=== PATIENT | male | born 1985 | race Caucasian/White ===

== ENCOUNTER 2019-05-22 13:45 | Emergency (ER) | payer MEDICAID ==
[~2019-05-22] VITALS: Ht 177.8 cm; Wt 93.0 kg
[2019-05-22] MEDS ORDERED: AMLODIPINE BESY10 MG ORAL (14:00)
--- NOTE | 2019-05-22 14:03 | NUR ---
ED Nurse Note: [facility] AOX4. PT STATES HE HAS HX OF RIGHT FEMUR FX X 08/2017. PT STATES FEMUR WAS FIXED WITH SURGERY. PT STATES HE WAS SEEN AT [facility] 2 MONTHS AGO AND WAS TOLD HE REFRACTURED RIGHT FEMUR. PT WAS UNABLE TO FOLLOW UP WITH ORTHOPEDICS DUE TO INCARCERATION. PT STATES HE WAS JUST RELEASED. PT C/O CONSTANT 6/10 PAIN TO RIGHT THIGH SINCE INITIAL FRACTURE THAT IS EXACERBATED BY ACTIVITY. FULL ROM OF EXTREMITY, CAP REFILL <2 SECONDS, SENSATION AND CIRCULATION INTACT, MUSCLE STRENGTH 5/5. OF NOTE, PT IS IN REHAB AND IS UNABLE TO TAKE NARCOTICS.
[2019-05-22 14:07] VITALS: BP 142/88
--- NOTE | 2019-05-22 14:29 | Emergency Room Report ---
History of Present Illness General Chief Complaint: Pain Source: Patient Present Illness HPI HPI: This is a 33-year-old male with a history of right femur fracture status post internal fixation 2016 (Dr. Chowdhury), polysubstance abuse currently on a voluntary drug rehab program presented for evaluation of right thigh pain. The pain began approximately 2 months ago where the patient was on vacation but does not recall a specific injury. He states that he was nearly immobile for several days however the pain gradually improved. States he was evaluated in the emergency department 2 months ago when the pain began initially diagnosed with a periprosthetic fracture. He was unable to follow-up with his orthopedic surgeon as he was incarcerated and then voluntarily checked himself into a drug rehab program which she is currently still enrolled in. Today, he states that he has had 3 days of worsening right thigh pain that does not radiate but is now preventing him from walking. He cannot recall a new injury. He has been using ibuprofen intermittently and is declining any narcotic pain medication. He denies any numbness or tingling, loss of strength, pain in the hip or back. Denies any difficulty passing urine, fecal incontinence or saddle anesthesias. PMH: Polysubstance abuse currently in rehab, hypertension PSH: Internal fixation of right femur Social Hx: Former polysubstance abuse including methamphetamines, former tobacco use, former alcohol use currently in remission Allergies: Coded Allergies: No Known Allergies (Unverified , 05/22/19) Nursing Documentation-PMH Past Medical History: No History, Except For Hx Hypertension: Yes Physical Exam Vital Signs Date Time Temp Pulse Resp B/P (MAP) Pulse Ox O2 Delivery O2 Flow Rate FiO2 05/22/19 13:55 98.2 88 18 147/95 (112) 97 Room Air General: Awake and alert, no acute distress Resp: Normal work of breathing. Skin: Intact. No abrasions, laceration or rash. Prior surgical scars are clean dry and intact MSK: Normal tone and bulk. No obvious deformity. There is tenderness to palpation in the distal femur bilaterally without obvious deformity in the knee or hip. There is some tenderness with weightbearing over the lateral and medial distal femur. Patient is able to ambulate several feet. Neuro: Awake and alert. Mentating appropriately. Moving all extremities. Sensation is intact to light touch over the dermatomes of the right lower extremity. Spine: No midline or paraspinal tenderness. No deformity in the cervical, thoracic or lumbosacral spine. 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 He states he was diagnosed with a periprosthetic fracture at the emergency department in [place] but never sought medical attention as he was incarcerated and then committed himself voluntary to drug rehab program. He is complaining today 3 days worsening pain and no difficulty ambulating. Will obtain x-rays and treat with NSAIDs. He has declined any pain medication other than nonsteroidals at this time. Other X-Ray Diagnostic Results Other X-Ray Diagnostic Results : X-Ray ordered: R femur # of Views/Limited Vs Complete: 2 View Indication: Pain EP Interpretation: Yes Interpretation: other Reevaluation Time: 15:42 Last Vital Signs Date Time Temp Pulse Resp B/P (MAP) Pulse Ox O2 Delivery O2 Flow Rate FiO2 05/22/19 14:07 98.4 84 17 142/88 99 Room Air Status: unchanged Reevaluation Impression X-ray shows the fracture from 2 years ago with nonunion of the distal femur as well as questionable hardware failure. The patient require orthopedic follow- up and stated that would like to see his former orthopedic surgeon if possible which he will try to arrange himself. We will also provide him additional orthopedic surgery referrals in the area. He has declined pain medication aside from NSAIDs which we will provide to him to take back to his substance abuse rehab program. We discussed reasons to return to the emergency department and I answered all the patient's questions. He is safe and appropriate for discharge with orthopedic surgery outpatient follow-up. Disposition: HOME, SELF-CARE Condition: Stable Scripts Acetaminophen (Acetaminophen) 500 Mg Tablet 500 MG ORAL Q4H for PAIN, #20 TAB Prov: Mata Bowden MD 05/22/19 Ibuprofen (Ibuprofen) 600 Mg Tablet 600 MG PO Q6HR for 10 Days, #40 TAB Prov: Mata Bowden MD 05/22/19 Mata Bowden MD May 22, 2019 14:29
--- NOTE | 2019-05-22 14:39 | NUR ---
ED Nurse Note: RADIOLOGY CALLED FOR XRAY.
--- NOTE | 2019-05-22 15:35 | Diagnostic Imaging Report ---
Indication: Thigh pain Findings: 2 views of the right femur were obtained. There is an old fracture involving the shaft of the distal femur which has been reduced by intramedullary bonita and proximal and distal interlocking screws. The fracture shows exuberant periosteal reaction and new bone formation particularly along the medial side of the fracture. There is a notable lucency demonstrated suggestive of nonosseous union. In addition there is evidence of hardware malfunction with a fracture of the one of the distal interlocking screws. IMPRESSION: Surgically reduced fracture of the distal right femur. The radiographic appearance suspicious for nonunion. Hardware injury noted as described above.
[2019-05-22] MEDS ORDERED: IBUPROFEN600 M1 PO (15:46)
[2019-05-22] MEDS ORDERED: ACETAMINOPHEN500 M5 ORAL (15:46)
[2019-05-22 15:58] VITALS: BP 136/82
--- NOTE | 2019-05-22 15:58 | NUR ---
ED Nurse Note: PT LAYING PEACEFULLY IN BED IN NAD. AOX4. PRESCRIPTIONS AND DISCHARGE PAPERWORK EXPLAINED TO PT. PT VERBALIZES UNDERSTANDING AND ALL QUESTIONS ANSWERED. PRESCRIPTIONS AND DISCHARGE PAPERWORK GIVEN TO PT AND ID WRISTBAND REMOVED. PT WALKED OUT OF ER WITH STEADY GAIT AND ALL BELONGINGS.
== END 2019-05-22 16:00 | disposition home or self-care (01) ==
LOC: EMR 14:20
DX: S72.401K Unspecified fracture of lower end of right femur, subsequent encounter for closed fracture with nonunion (principal); T85.698A Other mechanical complication of other specified internal prosthetic devices, implants and grafts, initial encounter; I10 Essential (primary) hypertension; Z87.891 Personal history of nicotine dependence; F10.21 Alcohol dependence, in remission; X58.XXXD Exposure to other specified factors, subsequent encounter; X58.XXXA Exposure to other specified factors, initial encounter; Y92.9 Unspecified place or not applicable
CPT/HCPCS: 99283

== ENCOUNTER 2019-06-18 13:53 | Emergency (ER) | payer MEDICAID, OTHER ==
[~2019-06-18] VITALS: Ht 177.8 cm; Wt 94.8 kg
[~2019-06-18 13:53] MED LIST: ACETAMINOPHEN500 M5 ORAL; AMLODIPINE BESY10 MG ORAL; IBUPROFEN600 M1 PO
[2019-06-18 14:15] VITALS: BP 134/93
--- NOTE | 2019-06-18 14:15 | NUR ---
ED Nurse Note: Patient walked in to ER due to right leg pain. AAO x4, VSS at this time, skin is dry warm to touch.
--- NOTE | 2019-06-18 14:21 | Emergency Room Report ---
History of Present Illness General Chief Complaint: Pain Source: Patient Present Illness HPI 33-year-old male with history of right femur fracture and currently having the hardware placed in here complaining of worsening pain. Patient was here 2 weeks ago x-ray was done and as well as CT scan showed that the hardware is malfunctioning. Patient has a pending appointment with personnel security specialist however reports more pain. Patient was discharged 2 weeks ago with ibuprofen and Tylenol. Patient reports that he is a recovering narcotic addict and specifically requests for no narcotics to be given. Patient denies any new injury or fall. Understands that no new imaging is needed at this time. As we have recently done CT scan and x-ray on his right femur. Denies tingling numbness. Denies pain radiation. Rating pain 10 out of 10. Also requests refill for lidocaine patch. Denies chest pain, shortness of breath, palpitation , no other associated symptoms. Allergies: Coded Allergies: No Known Allergies (Unverified , 06/18/19) Patient History Past Medical History: see triage record Past Surgical History: unable to obtain Pertinent Family History: none Immunizations: UTD Reviewed Nursing Documentation: PMH: Agreed; PSxH: Agreed Nursing Documentation-PMH Past Medical History: No History, Except For Hx Hypertension: Yes - SUBSTANCE ABUSE Review of Systems All Other Systems: negative except mentioned in HPI Physical Exam Vital Signs Date Time Temp Pulse Resp B/P (MAP) Pulse Ox O2 Delivery O2 Flow Rate FiO2 06/18/19 14:01 98.4 79 18 134/93 (107) 97 Room Air Sp02 EP Interpretation: reviewed, normal General Appearance: no apparent distress, alert, GCS 15, non-toxic Head: normocephalic, atraumatic Eyes: bilateral eye normal inspection, bilateral eye PERRL ENT: hearing grossly normal, normal pharynx, no angioedema, normal voice Neck: full range of motion, no meningismus, supple/symm/no masses Respiratory: chest non-tender, lungs clear, normal breath sounds, no wheezing, speaking full sentences Cardiovascular #1: regular rate, rhythm, no edema, normal capillary refill Cardiovascular #2: 2+ dorsalis pedis (R), 2+ dorsalis pedis (L) Gastrointestinal: normal bowel sounds, non tender, soft, non-distended, no guarding, no rebound Genitourinary: no CVA tenderness Musculoskeletal: normal inspection, back normal, digits/nails normal, gait/ station normal, no calf tenderness, pelvis stable Neurologic: normal inspection, alert, oriented x3 Psychiatric: judgement/insight normal, memory normal, mood/affect normal, no suicidal/homicidal ideation Skin: no rash Lymphatic: normal inspection Medical Decision Making PA Attestation All my diagnosis and treatment plans were reviewed ad discussed with my supervising physician Dr. Mcneal Diagnostic Impression: Primary Impression: Failed hardware Additional Impression: Pain in right femur ER Course 33-year-old male with history of right femur fracture and currently having the hardware placed in here complaining of worsening pain. Patient was here 2 weeks ago x-ray was done and as well as CT scan showed that the hardware is malfunctioning. Patient has a pending appointment with personnel security specialist however reports more pain. Patient was discharged 2 weeks ago with ibuprofen and Tylenol. Patient reports that he is a recovering narcotic addict and specifically requests for no narcotics to be given. Patient denies any new injury or fall. Understands that no new imaging is needed at this time. As we have recently done CT scan and x-ray on his right femur. Denies tingling numbness. Denies pain radiation. Rating pain 10 out of 10. Also requests refill for lidocaine patch. Denies chest pain, shortness of breath, palpitation , no other associated symptoms. Ddx considered but are not limited to: Hardware malfunction pain in the right femur, cellulitis right leg, osteomyelitis Vital signs: are WNL, pt. is afebrile H&PE are most consistent with: Hardware malfunction ORDERS: Lidocaine patch, Robaxin, Flexeril, ibuprofen ED INTERVENTIONS: None required at this time. DISCHARGE: At this time pt. is stable for d/c to home. Will provide printed patient care instructions, and any necessary prescriptions. Care plan and follow up instructions have been discussed with the patient prior to discharge. Patient agrees with the above course of treatment and to take Flexeril only at nighttime patient follow with personnel security specialist understanding no further imaging is needed at this time as patient as patient recently had imaging done in the right femur Last Vital Signs Date Time Temp Pulse Resp B/P (MAP) Pulse Ox O2 Delivery O2 Flow Rate FiO2 06/18/19 14:01 98.4 79 18 134/93 (107) 97 Room Air Disposition: HOME, SELF-CARE Condition: Stable Scripts Lidocaine Patch* (Lidoderm Patch*) 1 Each Adh..patch 1 PATCH TOPIC DAILY, #30 PATCH Patch(es) may remain in place for up to 12 hours in any 24-hour period. Prov: Tim Hercules 06/18/19 Cyclobenzaprine Hcl* (FLEXERIL*) 10 Mg Tablet 10 MG ORAL BEDTIME, #10 TAB Prov: Tim Hercules 06/18/19 Methocarbamol* (ROBAXIN-750*) 750 Mg Tablet 750 MG PO TID, #21 TAB 0 Refills Prov: Tim Hercules 06/18/19 Ibuprofen (Ibu) 800 Mg Tablet 800 MG PO BID, #30 TAB Prov: Tim Hercules 06/18/19 Patient Instructions: Hardware Removal Additional Instructions: Follow-up with personnel security specialist for checking her heart rate and possible removal or replacement take medication as directed avoid strenuous physical activity Tim Hercules Jun 18, 2019 14:21
[2019-06-18] MEDS ORDERED: CYCLOBENZAPRINE10 MG ORAL (14:22)
[2019-06-18] MEDS ORDERED: LIDODERM700 M1 TOPIC (14:22)
[2019-06-18] MEDS ORDERED: ROBAXIN-750750 MG PO (14:22)
[2019-06-18] MEDS ORDERED: IBU800 MG PO (14:22)
[2019-06-18 14:45] VITALS: BP 134/93
--- NOTE | 2019-06-18 14:45 | NUR ---
ED Nurse Note: Pt cleared by health care Provider for discharge. DC instructions/prescription was given and explained to pt and verbalized understanding of teachings. All medical deviecs such as ID band removed. Pt is AAO x4, ambulatory and left with all personal belongings.
== END 2019-06-18 15:30 | disposition home or self-care (01) ==
LOC: EMR 15:04
DX: M79.604 Pain in right leg (principal); I10 Essential (primary) hypertension; T84.098A Other mechanical complication of other internal joint prosthesis, initial encounter; Y83.8 Other surgical procedures as the cause of abnormal reaction of the patient, or of later complication, without mention of misadventure at the time of the procedure; Y92.9 Unspecified place or not applicable; F19.10 Other psychoactive substance abuse, uncomplicated
CPT/HCPCS: 99282

== ENCOUNTER 2019-09-05 17:27 | Emergency (ER) | payer MEDICAID, OTHER ==
[~2019-09-05] VITALS: Ht 172.7 cm; Wt 86.6 kg
[~2019-09-05 17:27] MED LIST changes: +CYCLOBENZAPRINE10 MG ORAL; +IBU800 MG PO; +LIDODERM700 M1 TOPIC; +ROBAXIN-750750 MG PO
[2019-09-05 17:40] VITALS: BP 151/95
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
[2019-09-05] MEDS ORDERED: HYDROcodone/Acetamin 5/325 tab ORAL ONE (18:45)
--- NOTE | 2019-09-05 18:46 | NUR ---
ED Nurse Note: [place] medication d/c by ERPA. Medication returned to pyxis.
--- NOTE | 2019-09-05 18:48 | NUR ---
ED Nurse Note: Xray at bedside.
[2019-09-05] MEDS ORDERED: Acetaminophen 500mg (ES) tab ORAL ONE (19:00)
--- NOTE | 2019-09-05 19:11 | NUR ---
HAND-OFF: Report given to Nellie RODRÍGUEZ. Endorsed plan of care. No new order at this time.
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
[2019-09-05] MEDS ORDERED: TYLENOL EXTRA500 MG ORAL (19:23)
[2019-09-05] MEDS ORDERED: IBUPROFEN600 MG ORAL (19:23)
[2019-09-05 19:42] VITALS: BP 150/97
--- NOTE | 2019-09-05 19:42 | NUR ---
ER DISCHARGE NOTE: Patient is cleared to be discharged per ERMD, pt is aox4, on room air, with stable vital signs. pt was given dc and prescription instructions, pt was able to verbalize understanding, pt id band removed without complications. pt is able to ambulate with steady gait. pt took all belongings.
--- NOTE | 2019-09-06 12:46 | Diagnostic Imaging Report ---
Indication: Right elbow pain Findings: 3 views of the right elbow were obtained. There is evidence of an acute fracture of the radial head intra-articular with slight displacement or depression of the lateral part of the radial head. Joint effusion noted. IMPRESSION: Acute fracture of the radial head
== END 2019-09-05 19:42 | disposition home or self-care (01) ==
LOC: EMR 19:36
DX: S52.124A Nondisplaced fracture of head of right radius, initial encounter for closed fracture (principal); W19.XXXA Unspecified fall, initial encounter; Y92.9 Unspecified place or not applicable; I10 Essential (primary) hypertension
CPT/HCPCS: 29125; 73080; Z7502; 99283

== ENCOUNTER → 2019-11-24 | Emergency (ER) | payer MEDICAID, OTHER ==
[~2019-11-24] VITALS: Ht 175.3 cm; Wt 88.5 kg
[~2019-11-24] MED LIST changes: +AUGMENTIN 875-1 EAC1 ORAL; +HYDROcodone/Acetamin 5/325 tab ORAL ONE; +IBUPROFEN600 MG ORAL; +Ketorolac 30mg Inj IM ONE; +NAPROXEN500 M2 ORAL; +ONDANSETRON ODT4 MG BC; +TYLENOL EXTRA500 MG ORAL
--- NOTE | 2019-11-24 16:40 | NUR ---
ED Nurse Note: patient walked in c/o right femur pain post surgery on 11/20/[address] [facility]. pt states pain 08/02. 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 pt denies fever. nad. patito pruitt at bedside. will continue to monitor patient.
--- NOTE | 2019-11-24 17:04 | Emergency Room Report ---
History of Present Illness General Chief Complaint: Pain Source: Patient Present Illness HPI 34-year-old male with no significant past medical history here. Day 3 of right femur bonita replacement. Complaining of pain right leg however denies fever chills complains of minimal swelling. Reports that he was discharged from the hospital 1 day ago and has a prescription for Jakin No. 45 as well as naproxen and Flexeril. Patient went to pharmacy and was told that they need to contact the physician who wrote them. The physician cannot be reached over the weekend. Patient here requesting pain medication. Has not taken any medication since has been discharged. Already ambulating with crutches. Denies tingling numbness in the leg. Incision site appears to be healing. Denies chest pain, shortness of breath, palpitation, headache or dizziness. Allergies: Coded Allergies: No Known Allergies (Unverified , 06/18/19) Patient History Past Medical History: see triage record Past Surgical History: unable to obtain Pertinent Family History: none Immunizations: UTD Reviewed Nursing Documentation: PMH: Agreed; PSxH: Agreed Nursing Documentation-PMH Past Medical History: No Stated History Hx Cardiac Problems: No Hx Hypertension: Yes - SUBSTANCE ABUSE Hx Pacemaker: No Hx Asthma: No Hx COPD: No Hx Diabetes: No Hx Cancer: No Hx Gastrointestinal Problems: No Hx Dialysis: No Hx Neurological Problems: No Hx Cerebrovascular Accident: No Hx Seizures: No Review of Systems All Other Systems: negative except mentioned in HPI Physical Exam Vital Signs Date Time Temp Pulse Resp B/P (MAP) Pulse Ox O2 Delivery O2 Flow Rate FiO2 11/24/19 16:35 98.1 102 18 166/98 (120) 98 Room Air Sp02 EP Interpretation: reviewed, normal General Appearance: no apparent distress, alert, GCS 15, non-toxic Head: normocephalic, atraumatic Eyes: bilateral eye normal inspection, bilateral eye PERRL ENT: hearing grossly normal, normal pharynx, no angioedema, normal voice Neck: full range of motion, supple/symm/no masses Respiratory: lungs clear, no rhonchi, no wheezing Cardiovascular #1: regular rate, rhythm, no edema Cardiovascular #2: 2+ femoral (R), 2+ femoral (L), 2+ dorsalis pedis (R), 2+ dorsalis pedis (L) Gastrointestinal: normal bowel sounds, non tender, soft, non-distended, no guarding, no rebound Rectal: deferred Genitourinary: no CVA tenderness Musculoskeletal: back normal, swelling - Minimal swelling right femur. Not warm to touch, no pus drainage noted Neurologic: alert, motor strength/tone normal, oriented x3, sensory intact, responsive, speech normal Psychiatric: judgement/insight normal, memory normal, mood/affect normal, no suicidal/homicidal ideation Skin: no rash Lymphatic: no adenopathy Medical Decision Making PA Attestation All my diagnosis and treatment plans were reviewed ad discussed with my supervising physician Dr. Marvin Diagnostic Impression: Primary Impression: Leg pain ER Course 34-year-old male with no significant past medical history here. Day 3 of right femur bonita replacement. Complaining of pain right leg however denies fever chills complains of minimal swelling. Reports that he was discharged from the hospital 1 day ago and has a prescription for Jakin No. 45 as well as naproxen and Flexeril. Patient went to pharmacy and was told that they need to contact the physician who wrote them. The physician cannot be reached over the weekend. Patient here requesting pain medication. Has not taken any medication since has been discharged. Already ambulating with crutches. Denies tingling numbness in the leg. Incision site appears to be healing. Denies chest pain, shortness of breath, palpitation, headache or dizziness. Ddx considered but are not limited to : Cellulitis, DVT, superficial infection, abscess, postoperative leg pain Vital signs: are WNL, pt. is afebrile H&PE are most consistent with: Postoperative leg pain ORDERS: Naproxen ED INTERVENTIONS: Jakin 5 mg p.o., Toradol 15 mg IM DISCHARGE: At this time pt. is stable for d/c to home. Will provide printed patient care instructions, and any necessary prescriptions. Care plan and follow up instructions have been discussed with the patient prior to discharge. Patient agrees with above treatment, understands that we cannot write for narcotics at this time as patient is postoperative and needs to follow-up with primary doctor. Patient will follow-up with primary care physician this coming Tuesday. Advised to return to the emergency room if fever chills, increased swelling and pain. Last Vital Signs Date Time Temp Pulse Resp B/P (MAP) Pulse Ox O2 Delivery O2 Flow Rate FiO2 11/24/19 16:35 98.1 102 18 166/98 (120) 98 Room Air Disposition: HOME, SELF-CARE Condition: Stable Scripts Naproxen* (NAPROXEN*) 500 Mg Tablet 500 MG ORAL TWICE A DAY, #30 TAB Prov: Tim Hercules 11/24/19 Patient Instructions: Edema, [id number] Additional Instructions: Follow-up with your primary care provider for further pain management as well as referral to specialist. Take medication as directed, worsening symptoms return to the emergency room Tim Hercules Nov 24, 2019 17:04
[2019-11-24 17:10] VITALS: BP 133/89
--- NOTE | 2019-11-24 17:10 | NUR ---
ER DISCHARGE NOTE: Patient is cleared to be discharged per ERPA, pt is aox4, on room air, with stable vital signs. pt was given dc and prescription instructions, pt was able to verbalize understanding, pt id band removed without complications. pt is able to ambulate with steady gait in crutches. pt took all belongings.
== END | disposition home or self-care (01) ==
LOC: EMR 17:31
DX: M79.604 Pain in right leg (principal)
CPT/HCPCS: 96372; J1885; Z7502; 99283

== ENCOUNTER 2019-12-20 01:28 | Emergency (ER) | payer MEDICAID ==
[~2019-12-20] VITALS: Ht 172.7 cm; Wt 84.8 kg
[~2019-12-20 01:28] MED LIST changes: -HYDROcodone/Acetamin 5/325 tab ORAL ONE; -Ketorolac 30mg Inj IM ONE
--- NOTE | 2019-12-20 01:45 | NUR ---
ED Nurse Note: Recieved pt from home with c/o right leg and elbow pain s/p fall, pt has steri strips to right knee area, s/p femur fx with surgery and swelling noted, also right elbow deformity and swelling, all pulses present, pt had mechanical fall, denies k.o or pre s/s, pt denies cp, sob, or any other complaints or discomforts, pt arrived with crutches in use.
--- NOTE | 2019-12-20 01:58 | Emergency Room Report ---
History of Present Illness General Chief Complaint: Lower Extremity Injury Source: Patient Present Illness HPI Patient presents with complaints of right leg pain Reports that about 30 minutes prior to arrival he had a slip and fall on a wet floor Has pain to the surgical site from previous surgery on the right femur Denies any ankle pain denies any head trauma denies any chest pain Pain is localized to the distal femur Denies any lapse of consciousness Allergies: Coded Allergies: No Known Allergies (Unverified , 06/18/19) Patient History Past Medical History: see triage record Reviewed Nursing Documentation: PMH: Agreed; PSxH: Agreed Nursing Documentation-PMH Hx Cardiac Problems: No Hx Hypertension: Yes Hx Pacemaker: No Hx Asthma: No Hx COPD: No Hx Diabetes: No Hx Cancer: No Hx Gastrointestinal Problems: No Hx Dialysis: No Hx Neurological Problems: No Hx Cerebrovascular Accident: No Hx Seizures: No Review of Systems All Other Systems: negative except mentioned in HPI Physical Exam Vital Signs Date Time Temp Pulse Resp B/P (MAP) Pulse Ox O2 Delivery O2 Flow Rate FiO2 12/20/19 01:36 98.1 75 16 135/88 (104) 98 Room Air Sp02 EP Interpretation: reviewed, normal General Appearance: well appearing, no apparent distress Head: normocephalic, atraumatic Eyes: bilateral eye PERRL, bilateral eye EOMI ENT: hearing grossly normal Neck: supple Respiratory: lungs clear, no respiratory distress, no retraction Cardiovascular #1: regular rate, rhythm Musculoskeletal: other - Deformity to the distal aspect of the right femur proximal knee area Steri-Strips in place with some mild dehiscence at the midpoint of the surgical scar Neurologic: alert, oriented x3 Skin: other - As above Lymphatic: no adenopathy Medical Decision Making Diagnostic Impression: Primary Impression: Injury of lower extremity ER Course Given the history and presentation patient had imaging obtained During this time he reports that his right elbow was also hurting Therefore imaging of that was also obtained however does have full range of motion X-ray of the femur does not show any obvious acute changes patient has had multiple previous injuries and recent revision 1 of the screws on the previous x -ray does appear to be replaced with a new one Elbow x-ray shows previous radial head fracture as well Patient does have immobilizer from previous and will use that at home and at this time requires close outpatient follow-up Other X-Ray Diagnostic Results Other X-Ray Diagnostic Results #1: X-Ray ordered: Right femur # of Views/Limited Vs Complete: 2 View Indication: Pain EP Interpretation: Yes Interpretation: no dislocation, no soft tissue swelling, no fractures, other - Patient has chronic malunion 1 of the previous screws appears to have been replaced with a new one, no acute process seen Impression: No acute disease Electronically Signed by: Ramona Marvin DO Other X-Ray Diagnostic Results #2: X-Ray ordered: Right elbow # of Views/Limited Vs Complete: 4 View Indication: Pain EP Interpretation: Yes Interpretation: no dislocation, no soft tissue swelling, no fractures, other - Previous radial head fracture Impression: No acute disease Electronically Signed by: Ramona Marvin DO Last Vital Signs Date Time Temp Pulse Resp B/P (MAP) Pulse Ox O2 Delivery O2 Flow Rate FiO2 12/20/19 01:36 98.1 75 16 135/88 (104) 98 Room Air Status: improved Disposition: HOME, SELF-CARE Condition: Improved Referrals: [facility],REFERRING (PCP) Additional Instructions: Patient is provided with the discharge instructions notified to follow up with primary doctor in the next 2-3 days otherwise return to the er with any worsening symptoms. Please note that this report is being documented using [employer] technology. This can lead to erroneous entry secondary to incorrect interpretation by the dictating instrument. Ramona Marvin DO Dec 20, 2019 01:57
[2019-12-20] MEDS ORDERED: Ketorolac 60mg Inj IM ONE (02:00)
[2019-12-20] MEDS ORDERED: Morphine Sulfate 2mg/ml Inj(IV/IM USE ONLY) IM ONE ×2 (02:15→03:15)
[2019-12-20] MEDS ORDERED: Morphine Sulfate 4mg/ml Inj (IV USE ONLY) ONE ×2 (02:16→03:18)
[2019-12-20 03:25] VITALS: BP 135/88
--- NOTE | 2019-12-20 11:48 | Diagnostic Imaging Report ---
Indications:Reason For Exam: TRAUMA Technique: Three or 4 views of the right elbow Comparison: None Findings: There is a fracture deformity of the right radial head, with persistence of the fracture line. No evidence of effusion currently on the lateral view is not a true lateral. Impression: Radial head fracture deformity. Appears similar to 09/05/2019. Uncertain as whether this represents an ununited old fracture versus a recurrent acute fracture. This agrees with the preliminary interpretation provided by the emergency room physician
--- NOTE | 2019-12-20 13:31 | Diagnostic Imaging Report ---
Indications: Pain, status post fall Technique: Two views of the right femur Comparison: 05/22/2019 Findings: Again demonstrated is a medullary bonita reducing a distal femoral fracture. The hardware appears intact. The fracture appears well aligned. There is bone seen bridging the fracture line but circumferential lucency persists. The fracture deformity appears essentially identical to the prior exam, with bone partially but not completely bridging the fracture. Calcification, presumably dystrophic, within the soft tissues are not evident previously. There is some soft tissue swelling anterior to the fracture as well as some Impression: Surgically repaired incompletely united right distal femoral fracture, appearing identical to prior study of 05/22/2019. No definite evidence of acute injury.
== END 2019-12-20 03:25 | disposition home or self-care (01) ==
LOC: EMR 01:51
DX: S79.921A Unspecified injury of right thigh, initial encounter (principal); I10 Essential (primary) hypertension; W01.0XXA Fall on same level from slipping, tripping and stumbling without subsequent striking against object, initial encounter; Y93.9 Activity, unspecified; Y92.9 Unspecified place or not applicable; Z87.81 Personal history of (healed) traumatic fracture
CPT/HCPCS: 73080; 73552; 96372; J2270; Z7502; 99284